=== PATIENT | male | born 1975 | race Caucasian/White ===

== ENCOUNTER 2020-09-08 00:26 | Emergency (ER) | payer OTHER ==
[~2020-09-08] VITALS: Ht 190.5 cm; Wt 117.9 kg
[2020-09-08 00:45] VITALS: BP 154/104
--- NOTE | 2020-09-08 00:50 | NUR ---
Pt presents to ED for c/o tooth and gum pain. States "the left upper gums and tooth have been hurting for about two weeks and the last two days the pain has increased. Has been taking tylenol every 4 hours and this has helped the pain some."
[2020-09-08] MEDS ORDERED: KEFLEX PO STA (01:20)
[2020-09-08] MEDS ORDERED: KEFLEX PO ONE ×2 (01:25→01:27)
[2020-09-08] MEDS ORDERED: TORADOL ONE (01:25)
--- NOTE | 2020-09-08 01:28 | ER.PDOC ---
General Chief Complaint: Toothache Stated Complaint: TOOTHACHE Time seen by MD: 00:45 Source: patient History of Present Illness Initial Comments 45-year-old male presents to the emergency department with complaint of dental pain on his right side of his mouth as well as multiple unrelated chronic complaints such as numbness in his bilateral feet for over 3 years.Patient states he has not seen a dentist in a long time because he cannot afford it. Allergies: Coded Allergies: No Known Allergies (Unverified , 03/03/15) Home Meds No Active Prescriptions or Reported Meds Past Medical History Medical History: no pertinent history Surgical History: no surgical history Social History Alcohol Use: none Drug Use: none Constitutional: no symptoms reported Eyes: no symptoms reported Mouth: other (Dental pain) Cardiovascular: no symptoms reported Gastrointestinal: no symptoms reported Physical Exam General Appearance: alert Head/Neck: head nml inspection Eyes: PERRL Mouth: lips, gums nml Throat: pharynx nml Respiratory: no resp. distress Extremities: non-tender, ROM nml NEURO/PSYCH: oriented X3, mood/effect nml Comments No obvious dental abscess noted. Patient does have a broken molar on the left but it is not tender to palpation. He does have mild swelling to his left cheek closer to the nasolabial fold. No significant tenderness to palpation no induration. Results/Orders Results/Orders Orders - SHIN MUKHERJEE MD Cephalexin (Keflex) (09/08/20 01:20) Ketorolac Tromethamine (Toradol) (09/08/20 01:30) Vital Signs Date Time Temp Pulse Resp B/P (MAP) Pulse Ox O2 Delivery O2 Flow Rate FiO2 09/08/20 00:45 98.1 101 18 09/08/20 00:45 98.1 101 18 154/104 (121) 96 09/08/20 00:45 98.1 101 18 96 Progress Progress Patient given p.o. Keflex as well as ketorolac for his dental issues.He has been advised to follow-up with a dentist for definitive care. ER DEPART Departure Time of Disposition: :26 Disposition: 01 HOME / SELF CARE / HOMELESS Impression: Primary Impression: Pain, dental Condition: Stable Referrals: ANH GILMORE (PCP) PRIMARY CARE PROVIDER Scripts No Active Prescriptions or Reported Meds Duration or Time Spent with Pa: 11 min Return to Work/School Can a patient return to work?: Yes Can a patient return to school: Yes SHIN MUKHERJEE MD September 08, 2020 01:28
[2020-09-08] MEDS ORDERED: TORADOL IM ONE (01:30)
== END 2020-09-08 01:45 | disposition home or self-care (01) ==
LOC: ER 00:26
DX: K08.89 Other specified disorders of teeth and supporting structures (principal); R20.0 Anesthesia of skin
CPT/HCPCS: 96372; 99283; J1885

== ENCOUNTER 2022-02-22 07:30 | Day surgery (SDC) | payer OTHER ==
[2022-02-16 13:17] VITALS: BP 151/88
--- NOTE | 2022-02-16 14:45 | PCM.EKG ---
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
[2022-02-16 14:50] LABS: BASOPHIL % 0.6 % (0.0-0.2); EOSINOPHIL # 0.2 10^3/uL (0.0-0.2); EOSINOPHIL % 2.5 % (0.0-5.0); LYMPHOCYTES # 1.63 10^3/uL1 (1.0-4.8); LYMPHOCYTES % 24.1 % (24.0-44.0); MEAN CORP HGB 29.5 pg (26-34); MONOCYTES # 0.4 10^3/uL (0.3-0.8); MONOCYTES % 5.6 % (5.0-12.0); NEUTROPHIL # 4.5 10^3/uL (1.8-7.7); NEUTROPHILS % 67.1 % (41.0-85.0); PLATELET COUNT 287 10^3/uL (150-400)
[2022-02-16 15:06] LABS: CARBON DIOXIDE 25.4 mmol/L (20.0-32)
[2022-02-22] VITALS (12 sets, daily range): BP systolic 124–157; BP diastolic 66–92
[~2022-02-22] VITALS: Ht 190.5 cm; Wt 103.9 kg
[~2022-02-22 07:30] MED LIST: ASPI-667 PO; ATOR40TA PO; CARV12.5 PO; DAPA10TA PO; FURO40TA4 PO; NS 1000ML 1,000 ML ONE; SACU1TAB PO
[2022-02-22] MEDS ORDERED: XYLOCAINE 2% 5ML VIAL ONE (08:07)
[2022-02-22] MEDS ORDERED: SUBLIMAZE ONE (08:07)
[2022-02-22] MEDS ORDERED: VERSED ONE (08:08)
[2022-02-22] MEDS: NS 1000ML 1,000 ML IV SCH (08:16)
[2022-02-22] MEDS ORDERED: NITROGLYCERIN 25MG/D5W 250ML 250 ML IV ONE (08:27)
[2022-02-22] MEDS ORDERED: CARDENE-NACL 20 MG/200 ML SOLN 200 ML IV ONE (08:27)
[2022-02-22] MEDS ORDERED: HEPARIN ONE (10:17)
[2022-02-22] MEDS ORDERED: POTA-148 PO (11:40)
--- NOTE | 2022-02-23 02:50 | [facility] ---
DATE OF SERVICE: 02/22/2022 DICTATOR NAME: DENIS CALDERON DO INDICATION: Cardiomyopathy. HISTORY: This is a 47-year-old male who was evaluated in the outpatient setting where he underwent cardiac ischemic workup. A 2D echo shows severe cardiomyopathy and so he was set up for left heart catheterization after informed consent were obtained. PROCEDURES PERFORMED: * Selective coronary angiography. * Left ventriculography. * Hemostasis established using a TR band. PROCEDURAL DETAILS: Access was obtained using a 6-[place] glide sheath to cannulate the right radial artery. Diagnostic angiography was then carried out using a [place] 4 catheter to engage the left main artery. The left main artery was noted to be angiographically normal. It trifurcates into left anterior descending artery, a ramus intermedius artery and the left circumflex artery. The left anterior descending artery is noted to have mild luminal irregularities. It gives rise to a large caliber diagonal artery that is noted to have mild luminal irregularities. The left anterior descending artery runs in the interventricular groove, wrapped around the apex to form a type 3 LAD. The ramus intermedius artery is a medium sized caliber vessel with mild luminal irregularities. The left circumflex artery is noted to be codominant and with mild luminal irregularities. It gives rise to 2 obtuse marginal branches that are noted to have mild luminal irregularities. The [place] 4 catheter was then used to engage the Russ. Russ angiography revealed a dominant Russ with mild luminal irregularities. The Russ bifurcates distally to a right posterior descending artery and the right posterolateral artery. Both vessels are noted to have mild luminal irregularities. The [place] 4 catheter was then exchanged for a pigtail catheter, which was used to cross the aortic valve into the left ventricle. Left ventriculography was performed. LVEF was noted to be 45%. LVEDP was noted to be 12. Upon pullback of the pigtail catheter, there was no gradient across the aortic valve. The pigtail catheter was then taken out and hemostasis was established using a TR band. 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 There were no complications. IMPRESSION: * Nonobstructive coronary artery disease. * Nonischemic cardiomyopathy. * Selective coronary angiography. * Left ventriculography. * Left ventricular ejection fraction of 45%. * Left ventricular end-diastolic pressure of 12. * Hemostasis established using a TR band. RECOMMENDATIONS: No coronary intervention is necessary at this time. Optimization of cardiac medications will be pursued. He will be discharged home today to follow up with me in the clinic in 2 weeks. Redd CALI D.O. DR: DENNIS TID: [id number] RECEIPT: [id number]
[2022-02-23] MEDS ORDERED: KLOR-CON 10 PO SCH (09:00)
== END 2022-02-22 14:01 | disposition home or self-care (01) ==
LOC: SDC 07:30
PROVIDERS: ATTEND Internal Medicine Interventional Cardiology
DX: I42.8 Other cardiomyopathies (principal); I25.10 Atherosclerotic heart disease of native coronary artery without angina pectoris; F41.9 Anxiety disorder, unspecified; Z79.01 Long term (current) use of anticoagulants; Z88.0 Allergy status to penicillin; Z79.899 Other long term (current) drug therapy; Z79.82 Long term (current) use of aspirin; Z82.49 Family history of ischemic heart disease and other diseases of the circulatory system
CPT/HCPCS: 80053; 85025; 36415; 85610; 85730; 93005; 93458; 99152; J7030; J1644 ×2; C1894; C1887; J3490; J2001; J2250; J3010; Q9967; C1769

== ENCOUNTER → 2023-07-20 | Outpatient (CLI) | payer OTHER ==
[~2023-07-20] MED LIST changes: -NS 1000ML 1,000 ML ONE; +POTA-148 PO
[2023-07-20 12:32] LABS: BASOPHIL % 0.2 % (0.0-0.2); EOSINOPHIL # 0.3 10^3/uL (0.0-0.2); EOSINOPHIL % 4.5 % (0.0-5.0); HEMATOCRIT(ML) 44.7 % (37.0-53.0); LYMPHOCYTES # 1.73 10^3/uL1 (1.0-4.8); LYMPHOCYTES % 30.8 % (24.0-44.0); MEAN CORP HGB 28.6 pg (26-34); MEAN CORP HGB CONCENTRATION 33.6 g/dL (33-36.5); MEAN CORP VOLUME 85.3 fL (78-100); MONOCYTES # 0.3 10^3/uL (0.3-0.8); MONOCYTES % 6.1 % (5.0-12.0); NEUTROPHIL # 3.3 10^3/uL (1.8-7.7); NEUTROPHILS % 58.4 % (41.0-85.0); RED BLOOD CELL 5.24 10^6/uL (4.50-5.90); RED CELL DISTRIBUTION WIDTH 14.1 % (11.5-14.5); WHITE BLOOD CELL 5.6 10^3/uL (4.5-11.0)
[2023-07-20 12:46] LABS: ALBUMIN(ML) 3.9 g/dL (3.4-5.0); ALBUMIN/GLOBULIN RATIO 0.975; ANION GAP 13.8; BUN/CREATININE RATIO 13.08 (10.0-20.0); CALCIUM 9.7 mg/dL (8.4-10.5); CARBON DIOXIDE 25.4 mmol/L (20.0-32); CREATININE SERUM 1.07 mg/dL (0.59-1.40); EST GFR, NON-AA 73.5 (>/=60); LDL/HDL RATIO 1.6; POTASSIUM 4.2 mmol/L (3.6-5.2)
== END | disposition home or self-care (01) ==
LOC: LAB 12:08
PROVIDERS: ATTEND Nurse Practitioner Family
DX: Z12.5 Encounter for screening for malignant neoplasm of prostate (principal); Z13.220 Encounter for screening for lipoid disorders; I42.0 Dilated cardiomyopathy; R73.03 Prediabetes
CPT/HCPCS: 36415; 80053; 80061; 83036; 84153; 85025

== ENCOUNTER 2023-09-27 07:45 | Day surgery (SDC) | payer OTHER ==
[2023-09-22 13:22] VITALS: BP 141/79; PULSE 82; RESP 18; TEMP 98.1; O2SAT 97
[2023-09-22 14:25] LABS: BASOPHIL % 0.5 % (0.0-0.2); EOSINOPHIL # 0.3 10^3/uL (0.0-0.2); EOSINOPHIL % 4.4 % (0.0-5.0); HEMATOCRIT(ML) 44.3 % (37.0-53.0); HEMOGLOBIN 14.4 g/dL (13.9-16.3); LYMPHOCYTES # 1.86 10^3/uL1 (1.0-4.8); LYMPHOCYTES % 31.7 % (24.0-44.0); MEAN CORP HGB 28.7 pg (26-34); MEAN CORP HGB CONCENTRATION 32.5 g/dL (33-36.5); MEAN CORP VOLUME 88.4 fL (78-100); MONOCYTES # 0.5 10^3/uL (0.3-0.8); NEUTROPHIL # 3.2 10^3/uL (1.8-7.7); NEUTROPHILS % 55.2 % (41.0-85.0); PLATELET COUNT 277 10^3/uL (150-400); RED BLOOD CELL 5.01 10^6/uL (4.50-5.90); RED CELL DISTRIBUTION WIDTH 14.4 % (11.5-14.5); WHITE BLOOD CELL 5.9 10^3/uL (4.5-11.0)
[2023-09-22 14:26] LABS: +ADD MANUAL DIFF(NO CHRG) NO
[2023-09-22 14:43] LABS: INR 0.9; PROTHROMBIN PROTIME 9.9 SEC (9.7-11.6)
[2023-09-22 14:48] LABS: ALBUMIN(ML) 3.7 g/dL (3.4-5.0); ALBUMIN/GLOBULIN RATIO 1.027; ANION GAP 15.8; BUN/CREATININE RATIO 10.81 (10.0-20.0); CALCIUM 10.4 mg/dL (8.4-10.5); CARBON DIOXIDE 25.3 mmol/L (20.0-32); CREATININE SERUM 1.11 mg/dL (0.59-1.40); EST GFR, NON-AA 70.4 (>/=60); POTASSIUM 4.1 mmol/L (3.6-5.2)
[~2023-09-27] VITALS: Ht 190.5 cm; Wt 116.1 kg
[~2023-09-27 07:45] MED LIST changes: +GABA100C7 PO; +LACTATED RINGERS 1,000 ML ONE; +MOVIPREP POWDER PACKET PO STA; +PSYL0.5242 PO; +WATER ONE
[2023-09-27 08:05] VITALS: BP 145/101; PULSE 80; RESP 16; TEMP 97.4; O2SAT 99
[2023-09-27] MEDS: LACTATED RINGERS 1,000 ML IV SCH (08:17)
[2023-09-27] MEDS ORDERED: DIPRIVAN IV ONE (09:05)
[2023-09-27] MEDS ORDERED: XYLOCAINE 2% 5ML VIAL ONE (09:05)
[2023-09-27 09:30] VITALS: BP 104/51; PULSE 71; RESP 16; TEMP 97.2; O2SAT 91
[2023-09-27 09:45] VITALS: BP 100/59; PULSE 68; RESP 16; O2SAT 90
[2023-09-27 10:00] VITALS: BP 111/58; PULSE 64; RESP 16; O2SAT 91
[2023-09-27 10:15] VITALS: BP 138/82; PULSE 74; RESP 16; O2SAT 91
[2023-09-27 10:30] VITALS: BP 145/86; PULSE 78; RESP 16; O2SAT 95
== END 2023-09-27 11:10 | disposition home or self-care (01) ==
LOC: SDC 07:45
PROVIDERS: ATTEND Surgery
DX: K59.00 Constipation, unspecified (principal); I42.0 Dilated cardiomyopathy; K64.8 Other hemorrhoids; G47.33 Obstructive sleep apnea (adult) (pediatric); I25.10 Atherosclerotic heart disease of native coronary artery without angina pectoris; I11.0 Hypertensive heart disease with heart failure; I50.9 Heart failure, unspecified; E78.00 Pure hypercholesterolemia, unspecified; K21.9 Gastro-esophageal reflux disease without esophagitis; Z98.890 Other specified postprocedural states; Z79.899 Other long term (current) drug therapy; Z82.49 Family history of ischemic heart disease and other diseases of the circulatory system; Z80.9 Family history of malignant neoplasm, unspecified; Z88.0 Allergy status to penicillin
CPT/HCPCS: 80053; 36415; 85025; 85730; 85610; 45378; J7120; A4217; J2704; J2001